=== PATIENT | female | born 1960 | race African-American/Black ===

== ENCOUNTER 2021-03-02 20:57 | Emergency (ER) | payer SELFPAY ==
[~2021-03-02] VITALS: Ht 154.9 cm; Wt 90.0 kg
[2021-03-02] MEDS ORDERED: OXYMETAZOLINE 0.05% NASAL SPRAY 30ML BOTTLE. NS ONE ×2 (21:12→21:30)
[2021-03-02 22:16] LABS: BASO # 0.1 x10^3/uL (0.0-0.2); BASO % 1 % (0-3); EOS # 0.2 x10^3/uL (0.0-0.7); EOS % 2 % (0-3); HEMATOCRIT 37.7 % (36.0-47.0); HEMOGLOBIN 12.9 g/dL (12.0-15.5); LYMPH # 2.3 x10^3/uL (1.0-4.8); LYMPH % 22 % (24-48); MEAN CORPUSCULAR HEMOGLOBIN 31 pg (25-35); MEAN CORPUSCULAR HGB CONC 34 g/dL (31-37); MEAN CORPUSCULAR VOLUME 92 fL (79-100); MONO # 0.6 x10^3/uL (0.0-1.1); MONO % 6 % (0-9); NEUT # 7.1 x10^3/uL (1.8-7.7); NEUT % 70 % (31-73); PLATELET COUNT 239 x10^3/uL (140-400); RED BLOOD COUNT 4.11 x10^6/uL (3.50-5.40); RED CELL DISTRIBUTION WIDTH 13.2 % (11.5-14.5); WHITE BLOOD COUNT 10.2 x10^3/uL (4.0-11.0)
[2021-03-02 22:29] LABS: CALCIUM 8.2 mg/dL (8.5-10.1); CREATININE 0.8 mg/dL (0.6-1.0); GFR 88.2; POTASSIUM 3.6 mmol/L (3.5-5.1)
[2021-03-02 22:30] LABS: PROTHROMBIN TIME PATIENT 13.2 SEC (11.7-14.0)
[2021-03-02] MEDS ORDERED: TRANEXAMIC ACID 1,000 MG/10 ML VIAL. TOP ONE ×2 (23:00→23:30)
[2021-03-03 00:43] LABS: HEMOGLOBIN 12.5 g/dL (12.0-15.5)
--- NOTE | 2021-03-03 00:46 | PHYS DOC ---
Past Medical History Past Medical History: No Pertinent History (KAMILLE JOHNSON APRN) Past Surgical History: Hysterectomy (KAMILLE JOHNSON APRN) Smoking Status: Never Smoker Alcohol Use: None Drug Use: None (KAMILLE JOHNSON APRN) General Adult EDM: Chief Complaint: NOSEBLEED HPI: HPI: Patient is a 60 year old female who presents with a nosebleed that started about 30 minutes prior to arrival. Patient states that she could not get bleeding stopped at home. Denies trauma. Denies being on any blood thinners. History of hypertension. Patient denies taking any daily meds. (KAMILLE JOHNSON APRN) Review of Systems: Review of Systems: ROS At least 10 ROS systems have been reviewed and are negative except as documented in the HPI. General: Negative except as outlined in HPI above. Skin: Negative except as outlined in HPI above. HEENT: Negative except as outlined in HPI above. Neck: Negative except as outlined in HPI above. Respiratory: Negative except as outlined in HPI above.. Cardiovascular: Negative except as outlined in HPI above. Abdomen: Negative except as outlined in HPI above. : Negative except as outlined in HPI above. Back/MSK: Negative except as outlined in HPI above. Neuro: Negative except as outlined in HPI above. Psych: Negative except as outlined in HPI above. (KAMILLE JOHNSON APRN) Heart Score: C/O Chest Pain: No Risk Factors: Risk Factors: DM, Current or recent (<one month) smoker, HTN, HLP, family history of CAD, obesity. Risk Scores: Score 0 - 3: 2.5% MACE over next 6 weeks - Discharge Home Score 4 - 6: 20.3% MACE over next 6 weeks - Admit for Clinical Observation Score 7 - 10: 72.7% MACE over next 6 weeks - Early Invasive Strategies (KAMILLE JOHNSON APRN) Current Medications: Current Medications Medications (Trade) Dose Ordered Sig/Lyric Start Time Stop Time Status Last Admin Dose Admin Oxymetazoline HCl (Afrin) 120 spray STK-MED ONCE 03/02/21 21:12 03/02/21 21:13 DC Tranexamic Acid (Cyklokapron) 1,000 mg 1X ONCE 03/02/21 23:30 03/02/21 23:31 DC 03/02/21 23:10 1,000 MG (JOHNSON,KAMILLE SENIOR ANDROID DEVELOPER) Allergies: Allergies: Allergies Coded Allergies Type Severity Reaction Last Updated Verified No Known Drug Allergies 10/15/14 No (KAMILLE JOHNSON APRN) Physical Exam: PE: Constitutional: Well developed, well nourished, no acute distress, non-toxic appearance. [] HENT: Normocephalic, atraumatic, bilateral external ears normal, oropharynx moist, no oral exudates, bleeding from the left nare Eyes: PERRLA, EOMI, conjunctiva normal, no discharge. [] Neck: Normal range of motion, no tenderness, supple, no stridor. [] Cardiovascular:Heart rate regular rhythm, no murmur [] Lungs & Thorax: Bilateral breath sounds clear to auscultation [] Abdomen: Bowel sounds normal, soft, no tenderness, no masses, no pulsatile masses. [] Skin: Warm, dry, no erythema, no rash. [] Back: No tenderness, no CVA tenderness. [] Extremities: No tenderness, no cyanosis, no clubbing, ROM intact, no edema. [] Neurologic: Alert and oriented X 3, normal motor function, normal sensory function, no focal deficits noted. [] Psychologic: Affect normal, judgement normal, mood normal. [] (KAMILLE JOHNSON APRN) Current Patient Data: Labs: Laboratory Tests Test 03/02/21 22:05 White Blood Count 10.2 x10^3/uL (4.0-11.0) Red Blood Count 4.11 x10^6/uL (3.50-5.40) Hemoglobin 12.9 g/dL (12.0-15.5) Hematocrit 37.7 % (36.0-47.0) Mean Corpuscular Volume 92 fL (79-100) Mean Corpuscular Hemoglobin 31 pg (25-35) Mean Corpuscular Hemoglobin Concent 34 g/dL (31-37) Red Cell Distribution Width 13.2 % (11.5-14.5) Platelet Count 239 x10^3/uL (140-400) Neutrophils (%) (Auto) 70 % (31-73) Lymphocytes (%) (Auto) 22 % (24-48) L Monocytes (%) (Auto) 6 % (0-9) Eosinophils (%) (Auto) 2 % (0-3) Basophils (%) (Auto) 1 % (0-3) Neutrophils # (Auto) 7.1 x10^3/uL (1.8-7.7) Lymphocytes # (Auto) 2.3 x10^3/uL (1.0-4.8) Monocytes # (Auto) 0.6 x10^3/uL (0.0-1.1) Eosinophils # (Auto) 0.2 x10^3/uL (0.0-0.7) Basophils # (Auto) 0.1 x10^3/uL (0.0-0.2) Prothrombin Time 13.2 SEC (11.7-14.0) Prothrombin Time INR 1.0 (0.8-1.1) Activated Partial Thromboplast Time 30 SEC (24-38) Sodium Level 140 mmol/L (136-145) Potassium Level 3.6 mmol/L (3.5-5.1) Chloride Level 107 mmol/L (98-107) Carbon Dioxide Level 27 mmol/L (21-32) Anion Gap 6 (6-14) Blood Urea Nitrogen 19 mg/dL (7-20) Creatinine 0.8 mg/dL (0.6-1.0) Estimated GFR (Cockcroft-Gault) 88.2 Glucose Level 146 mg/dL (70-99) H Calcium Level 8.2 mg/dL (8.5-10.1) L Laboratory Tests 03/02/21 22:05 Laboratory Tests 03/02/21 22:05 Vital Signs: Vital Signs Date Time Temp Pulse Resp B/P (MAP) Pulse Ox O2 Delivery O2 Flow Rate FiO2 03/02/21 23:57 82 16 95 03/02/21 21:06 98.0 191/82 (118) Room Air 98.0 (KAMILLE JOHNSON APRN) EKG: EKG: [] (KAMILLE JOHNSON APRN) Radiology/Procedures: Radiology/Procedures: [] (KAMILLE JOHNSON APRN) Course & Med Decision Making: Course & Med Decision Making Pertinent Labs and Imaging studies reviewed. (See chart for details) [] 60-year-old female presents with nosebleed. Patient was unable to get bleeding to stop at home. We had patient blow her nose, use Afrin nasal spray and hold pressure for 20 minutes. On reassessment, patient's bleeding had not been controlled. H&H is unremarkable .Rhino Rocket with Tranexamic Acid was placed in left nare. Bleeding was controlled once a Rhino Rocket was placed. Due to the amount of blood that was lost and concerns for posterior nosebleed I consulted economics professor ENT at [facility]. bilingual call center representative ENT agreed to see patient in his office in 48 hours for a follow up. bilingual call center representative ENT did not feel patient needed to be admitted and was appropriate to follow up in the clinic in 48 hrs. Discussed plan with patient who agrees with follow up plan. Advised patient not to pick her nose or attempt to removed Rhino Rocket until seen by ENT. Patient given work note. Patient is hemodynamically stable upon disposition. (KAMILLE JOHNSON APRN) Course & Med Decision Making I was the Attending physician on the above date of service of this patient. This patient was evaluated, examined, treated, and dispositioned from the emergency department by the mid-level practitioner. I oversaw care of patient while in ER. Epistaxis resolved with nasal packing. I recommended need for hospital transfer for ENT consultation but after discussion, ENT attending deferred need for transfer and advise close outpatient follow-up. Electronically signed, Jennifer Olsen DO (JENNIFER OLSEN DO) [place] Disclaimer: [place] Disclaimer: This electronic medical record was generated, in whole or in part, using a voice recognition dictation system. (KAMILLE JOHNSON APRN) Departure Departure Impression: Primary Impression: Epistaxis Disposition: HOME / SELF CARE / HOMELESS Condition: STABLE Referrals: NO PCP (PCP) Patient Instructions: Nosebleed, [id number] Additional Instructions: Patient emergency room for a nosebleed. We inserted a Rhino Rocket to help with bleeding. I spoke with the ENT at [facility]. You will need to follow-up in his office in 48 hours and further evaluation. If you start having bleeding from your nose again please return to the emergency room. Please call his office in the morning to make a follow-up appointment. I am providing a work note for you for the next few days until you can follow-up with ENT. [facility] Facebook (3) [facility] [address], [place] Open 24 hours EMERGENCY DEPARTMENT GENERAL DISCHARGE INSTRUCTIONS Thank you for coming to Emergency Department (ED) today and trusting us with you care. We trust that you had a positive experience in our Emergency Department. If you wish to speak to the department management, you may call the Director at [phone]. YOUR FOLLOW UP INSTRUCTIONS ARE FOLLOWS: 1. Do you have a private Doctor? If you do not have a private doctor, please ask for a resource list of physicians or clinics that may be able to assist you with follow up care. 2. The Emergency Physicain has interpreted your x-rays. The X-Ray specialist will also review them. If there is a change in the findings, you will be notified in 48 hours when at all possible. 3. A lab test or culture has been done, your results will be reviewed and you will be notified if you need a change in treatment. ADDITIONAL INSTRUCTIONS AND INFORMATION: 1. Your care today has been supervised by a physician who is specially trained in emergency care. Many problems require more than one evaluation for a complete diagnosis and treatment. We recommend that you schedule your follow up appointment as recom mended to ensure complete treatment of you illness or injury. If you are unable to obtain follow up care and continue to have a problem, or if your condition worsens, we recommend that you return to the ED. 2. We are not able to safely determine your condition over the phone nor are we able to give sound medical advice over the phone. For these safety reasons, if you call for medical advice we will ask you to come to the ED for further evaluation. 3. If you have any questions regarding these discharge instructions please call the ED at [phone]. SAFETY INFORMATION: In the interest of safety, wellness, and injury prevention; we encourage you to wear your sealbelt, if you smoke; quite smoking, and we encourage family to use a protective helmet for bicycling and other sporting events that present an increased risk for head injury. IF YOUR SYMPTOMS WORSEN OR NEW SYMPTOMS DEVELOP, OR YOU HAVE CONCERNS ABOUT YOUR CONDITION; OR IF YOUR CONDITION WORSENS WHILE YOU ARE WAITING FOR YOUR FOLLOW UP APPOINTMENT; EITHER CONTACT YOUR PRIMARY CARE DOCTOR, THE PHYSICIAN WHOSE NAME AND NUMBER YOU WERE GIVEN, OR RETURN TO THE ED IMMEDIATELY. KAMILLE JOHNSON APRN Mar 03, 2021 00:46 JENNIFER OLSEN DO Mar 07, 2021 06:10
[2021-03-03 00:59] VITALS: BP 175/79
== END 2021-03-03 01:11 | disposition home or self-care (01) ==
LOC: ER 20:57
DX: R04.0 Epistaxis (principal)
CPT/HCPCS: 36415; 80048; 85014; 85018; 85025; 85610; 85730; 99285; J3490